=== PATIENT | male | born 1960 | race Caucasian/White ===

== ENCOUNTER 2024-04-22 07:07 | Day surgery (SDC) | payer BC ==
[~2024-04-22 07:07] MED LIST: Sodium Chloride 0.9% 10 ML Syringe FLUSH PRN
[2024-04-22] MEDS ORDERED: Midazolam 1 MG/ML 2 ML SDV IV ONE (07:08)
[2024-04-22] MEDS ORDERED: Ketamine 500 mg/10 ML MDV IV ONE (07:08)
[2024-04-22] MEDS ORDERED: Phenylephrine 0.5% Nasal Spray 15 ML Bot NAS ONE (07:08)
[2024-04-22] MEDS ORDERED: Propofol 200 MG/20 ML SDV IV ONE (07:08)
[2024-04-22] MEDS: Lactated Ringers 1,000 ML IV SCH (08:05)
[2024-04-22] MEDS: Simethicone Drops 40 MG/0.6 ML 30 ML Bottle ONE (08:52)
[2024-04-22 10:02] LABS: CREATININE 0.9 mg/dL (0.70-1.30); EST CRCL DRUG DOSING (CG) 76.8 mL/min
[2024-04-22] MEDS: Iopamidol 755 Mg/ML 100 ML Bottle IV SCH (12:31)
[2024-04-22] MEDS: Diatrizoate Meglumine/Diatrizoate Sodium 37% 30 ML Bottle PO ONE (12:31)
[2024-04-23 21:38] LABS: CARCINOEMBRYONIC ANTIGEN 2.5 ng/mL (<=3.8)
== END 2024-04-22 12:10 | disposition home or self-care (01) ==
LOC: FB.SDS 07:07
PROVIDERS: ATTEND Surgery
DX: Z12.11 Encounter for screening for malignant neoplasm of colon (principal); C20 Malignant neoplasm of rectum; D12.2 Benign neoplasm of ascending colon; D12.6 Benign neoplasm of colon, unspecified; K42.9 Umbilical hernia without obstruction or gangrene; I10 Essential (primary) hypertension; E66.01 Morbid (severe) obesity due to excess calories; Z68.41 Body mass index [BMI] 40.0-44.9, adult
CPT/HCPCS: 00811; 36415; 45380; 45385; 74177; 82378; 82565; 88305; 88341; 88342; A9270; J2250; J2704; J3490; J7120; Q9963; Q9967